=== PATIENT | female | born 1975 | race Caucasian/White ===

== ENCOUNTER 2016-07-22 12:37 | Emergency (ER) | payer SELFPAY ==
[2016-07-22 14:03] LABS: HCG URINE NEGATIVE (NEGATIVE)
== END 2016-07-22 17:45 | disposition home or self-care (01) ==
LOC: D.ER 12:37
PROVIDERS: Nurse Practitioner Family
DX: S43.401A Unspecified sprain of right shoulder joint, initial encounter (principal); Y04.2XXA Assault by strike against or bumped into by another person, initial encounter; Y93.89 Activity, other specified; Y92.89 Other specified places as the place of occurrence of the external cause; M62.838 Other muscle spasm; F32.9 Major depressive disorder, single episode, unspecified; F17.200 Nicotine dependence, unspecified, uncomplicated